=== PATIENT | female | born 1985 ===

== ENCOUNTER 2017-07-10 16:32 | Emergency (ER) | payer OTHER ==
[2017-07-10 16:32] VITALS: BMI 39.8
[2017-07-10 16:53] VITALS: BP 154/60; PULSE 95; RESP 16; TEMP 98.9; O2SAT 99
--- NOTE | 2017-07-10 17:22 | ED PDOC ---
HPI: Back Time Seen by Provider: 07/10/17 16:55 Chief Complaint (Nursing): Back Pain Chief Complaint (Provider): Back Pain History Per: Patient History/Exam Limitations: no limitations Onset/Duration Of Symptoms: Days (x2) Current Symptoms Are (Timing): Still Present Additional Complaint(s): Glory Church is a 31 year old female who presents to the ED complaining of lower back pain ongoing for 2 days. 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 No associated bowel or bladder dysfunction. Patient states that pain radiates down left leg. Patient has not taken any meds for the pain. PMD: Ravi Bernabe MD Past Medical History Reviewed: Historical Data, Nursing Documentation, Vital Signs Vital Signs: Last Vital Signs Temp 98.9 F 07/10/17 16:51 Pulse 95 H 07/10/17 16:51 Resp 16 07/10/17 16:51 BP 154/60 H 07/10/17 16:51 Pulse Ox 99 07/10/17 16:51 - Medical History PMH: Anxiety, Back Problems, Seizures - Surgical History Surgical History: (x 1) - Family History Family History: States: No Known Family Hx - Living Arrangements Living Arrangements: With Family - Social History Current smoker - smoking cessation education provided: Yes Alcohol: Occasional Drugs: Denies - Home Medications Home Medications: Ambulatory Orders Medication Instructions Recorded Fluticasone Propionate [Flonase] 4 spr IN DAILY #1 bottle 01/13/15 Guaifenesin/Pseudoephedrne HCl 1 ter PO Q12H PRN #10 ter 01/13/15 [Mucinex D 600 mg-60 mg] Albuterol HFA [Ventolin HFA 90 1 - 2 puff IH Q4H PRN #1 bottle 06/02/15 mcg/actuation (8 g)] Clindamycin [Cleocin] 300 mg PO QID #40 cap 07/14/15 oxyCODONE/Acetaminophen [Percocet 1 tab PO Q6H PRN #20 tab 07/14/15 5/325 mg Tab] Cyclobenzaprine HCl [Flexeril] 10 mg PO HS #10 tab 08/29/15 Oxycodone HCl/Acetaminophen 1 tab PO Q4 #10 tab 08/29/15 [Percocet 325 mg-5 mg] Azithromycin [Zithromax] 250 mg PO DAILY #6 tab 08/29/16 Benzonatate 200 mg PO TID PRN #20 capsule 08/29/16 predniSONE [Prednisone] 10 mg PO BID #10 tab 08/29/16 Fluconazole [Diflucan] 150 mg PO ONCE #1 tab 09/14/16 Metronidazole [Metrogel] 60 gm VAG HS #1 packet 09/14/16 Nitrofurantoin Macrocrystals 100 mg PO BID #14 cap 09/14/16 [Macrobid] Cyclobenzaprine [Cyclobenzaprine 10 mg PO TID PRN #20 tab 07/10/17 HCl] Naproxen [Naprosyn] 500 mg PO BID #20 tab 07/10/17 Prednisone 50 mg PO DAILY #5 tablet 07/10/17 - Allergies Allergies/Adverse Reactions: Allergies Allergy/AdvReac Type Severity Reaction Status Date / Time Penicillins Allergy RASH Verified 08/29/16 13:42 Review of Systems ROS Statement: Except As Marked, All Systems Reviewed And Found Negative Gastrointestinal: Negative for: Nausea, Vomiting, Abdominal Pain, Diarrhea, Constipation Genitourinary Female: Negative for: Dysuria, Frequency, Incontinence Musculoskeletal: Positive for: Back Pain (lower, pain radiates down left leg) Neurological: Positive for: Numbness (left leg when sitting for long periods) Physical Exam - Reviewed Nursing Documentation Reviewed: Yes Vital Signs Reviewed: Yes - Physical Exam Appears: Positive for: Well, Non-toxic, No Acute Distress Head Exam: Positive for: ATRAUMATIC, NORMAL INSPECTION, NORMOCEPHALIC Skin: Positive for: Normal Color. Negative for: Rash Eye Exam: Positive for: Normal appearance Back: Positive for: Muscle Spasm (lumbar region), Other (Able to heel/toe walk, straight leg raise positive on left at 30 degrees). Negative for: Normal Inspection (Tenderness across lower lumbar region) Neurologic/Psych: Positive for: Alert, Oriented - Laboratory Results Urine POC: Negative - ECG O2 Sat by Pulse Oximetry: 99 (RA) Pulse Ox Interpretation: Normal Medical Decision Making Medical Decision Making: Time: 17:16 Initial Impression: 31 year old female with back pain and sciatica Plan: --Flexeril 10 mg PO --Toradol 30 mg IM --Prednisone 60 mg PO --Reevaluation Patient feels better after meds given in ED. Prescriptions given for prednisone , Naprosyn and Flexeril. Patient was referred to ortho environmental field professional for follow up. Scribe Attestation: Documented by Jaspreet Mitchell, acting as a scribe for Kim Tapia PA-C Provider Scribe Attestation: All medical record entries made by the Scribe were at my direction and personally dictated by me. I have reviewed the chart and agree that the record accurately reflects my personal performance of the history, physical exam, medical decision making, and the department course for this patient. I have also personally directed, reviewed, and agree with the discharge instructions and disposition. Disposition - Clinical Impression Clinical Impression: Back strain, Sciatica - Patient ED Disposition Is Patient to be Admitted: No Counseled Patient/Family Regarding: Diagnosis, Need For Followup, Rx Given - Disposition Referrals: Kevin Lundberg III, MD [Staff Provider] - Disposition: Routine/Home Disposition Time: 18:26 Condition: STABLE Additional Instructions: Take prescription medications as directed as needed for pain. Rest as much as possible and avoid heavy lifting. Follow up with primary doctor or with orthopedics for any persistent symptoms. Prescriptions: Cyclobenzaprine [Cyclobenzaprine HCl] 10 mg PO TID PRN #20 tab PRN Reason: Muscle Spasm Naproxen [Naprosyn] 500 mg PO BID #20 tab Prednisone 50 mg PO DAILY #5 tablet Instructions: Back Pain (ED), Sciatica (ED) Forms: [place] ([place]ian), [facility] ED School/Work Excuse
== END 2017-07-10 18:11 | disposition home or self-care (01) ==
LOC: H.ER 16:32
DX: M54.30 Sciatica, unspecified side (principal); F41.9 Anxiety disorder, unspecified; Z88.0 Allergy status to penicillin
CPT/HCPCS: 81025; 96372; 99281; J1885

== ENCOUNTER 2017-08-06 19:18 | Emergency (ER) | payer OTHER ==
[2017-08-06 19:18] VITALS: BMI 39.8
[2017-08-06 19:44] VITALS: BP 158/103; PULSE 96; RESP 20; TEMP 98; O2SAT 97
--- NOTE | 2017-08-06 20:45 | ED PDOC ---
HPI: General Adult Time Seen by Provider: 08/06/17 20:02 Chief Complaint (Nursing): Flu-like Symptoms Chief Complaint (Provider): Flu-like Symptoms History Per: Patient Current Symptoms Are (Timing): Still Present Additional Complaint(s): Glory is a 32 year old female whho presents with body aches, nasal/sinus congestion and coughing for the past 2 days. Patient also has breast tenderness and cramping and is concerned about possible . She took a test at home and it was negative. Her last menstruation was July 24 and states she is regular. Patient has no vaginal bleeding at this time. PMD: Ravi Bernabe MD Past Medical History Reviewed: Historical Data, Nursing Documentation, Vital Signs Vital Signs: Last Vital Signs Temp 98 F 08/06/17 19:40 Pulse 96 H 08/06/17 19:40 Resp 20 08/06/17 19:40 BP 158/103 H 08/06/17 19:40 Pulse Ox 97 08/06/17 21:03 - Medical History PMH: Anxiety, Back Problems, Seizures - Surgical History Surgical History: (x 1) - Family History Family History: States: No Known Family Hx - Living Arrangements Living Arrangements: With Family - Social History Current smoker - smoking cessation education provided: Yes Alcohol: Social Drugs: Denies - Home Medications Home Medications: Ambulatory Orders Medication Instructions Recorded Fluticasone Propionate [Flonase] 4 spr IN DAILY #1 bottle 01/13/15 Guaifenesin/Pseudoephedrne HCl 1 ter PO Q12H PRN #10 ter 01/13/15 [Mucinex D 600 mg-60 mg] Albuterol HFA [Ventolin HFA 90 1 - 2 puff IH Q4H PRN #1 bottle 06/02/15 mcg/actuation (8 g)] Clindamycin [Cleocin] 300 mg PO QID #40 cap 07/14/15 oxyCODONE/Acetaminophen [Percocet 1 tab PO Q6H PRN #20 tab 07/14/15 5/325 mg Tab] Cyclobenzaprine HCl [Flexeril] 10 mg PO HS #10 tab 08/29/15 Oxycodone HCl/Acetaminophen 1 tab PO Q4 #10 tab 08/29/15 [Percocet 325 mg-5 mg] Azithromycin [Zithromax] 250 mg PO DAILY #6 tab 08/29/16 Benzonatate 200 mg PO TID PRN #20 capsule 08/29/16 predniSONE [Prednisone] 10 mg PO BID #10 tab 08/29/16 Fluconazole [Diflucan] 150 mg PO ONCE #1 tab 09/14/16 Metronidazole [Metrogel] 60 gm VAG HS #1 packet 09/14/16 Nitrofurantoin Macrocrystals 100 mg PO BID #14 cap 09/14/16 [Macrobid] Cyclobenzaprine [Cyclobenzaprine 10 mg PO TID PRN #20 tab 07/10/17 HCl] Naproxen [Naprosyn] 500 mg PO BID #20 tab 07/10/17 Prednisone 50 mg PO DAILY #5 tablet 07/10/17 Albuterol HFA [Ventolin HFA 90 1 puff IH ASDIR #1 unit 08/06/17 mcg/actuation (8 g)] Azithromycin [Zithromax] 250 mg PO DAILY #6 tab 08/06/17 Fluticasone Propionate [Flonase] 1 actuation NS DAILY #1 bottle 08/06/17 - Allergies Allergies/Adverse Reactions: Allergies Allergy/AdvReac Type Severity Reaction Status Date / Time Penicillins Allergy RASH Verified 08/06/17 19:44 Review of Systems ROS Statement: Except As Marked, All Systems Reviewed And Found Negative Constitutional: Positive for: Fever (subjective fever yesterday), Other (Body aches) Respiratory: Positive for: Cough, Sputum (yellow) Gastrointestinal: Positive for: Nausea. Negative for: Vomiting Genitourinary Female: Positive for: Other (Cramping). Negative for: Dysuria, Frequency, Incontinence, Hematuria, Vaginal Discharge, Vaginal Bleeding Physical Exam - Reviewed Nursing Documentation Reviewed: Yes Vital Signs Reviewed: Yes - Physical Exam Appears: Positive for: Non-toxic Head Exam: Positive for: ATRAUMATIC, NORMAL INSPECTION, NORMOCEPHALIC Eye Exam: Positive for: Normal appearance ENT: Positive for: Other (Moderate nasal and sinus congestion). Negative for: Pharyngeal Erythema Cardiovascular/Chest: Positive for: Regular Rate, Rhythm Respiratory: Positive for: Normal Breath Sounds. Negative for: Wheezing, Respiratory Distress Back: Positive for: Normal Inspection Extremity: Positive for: Normal ROM Neurologic/Psych: Positive for: Alert, Oriented (x 3) - Laboratory Results Urine POC: Negative - ECG O2 Sat by Pulse Oximetry: 97 (RA) Pulse Ox Interpretation: Normal - Other Rad CXR X-Ray: Interpreted by Me, Viewed By Me X-Ray Interpretation: no infiltrate Medical Decision Making Medical Decision Making: Time: 20:09 Plan: - Urine Test - Chest X-Ray test is negative, chest x-ray shows no infiltrate. Prescriptions provided for Flonase, Zithromax and Ventolin inhaler. Patient was instructed to follow up with primary doctor in 2-3 days. Scribe Attestation: Documented by [place], acting as a scribe for Kim Tapia PA-C Provider Scribe Attestation: All medical record entries made by the Scribe were at my direction and personally dictated by me. I have reviewed the chart and agree that the record accurately reflects my personal performance of the history, physical exam, medical decision making, and the department course for this patient. I have also personally directed, reviewed, and agree with the discharge instructions and disposition. Disposition - Clinical Impression Clinical Impression: Sinusitis - Patient ED Disposition Is Patient to be Admitted: No Counseled Patient/Family Regarding: Studies Performed, Diagnosis, Need For Followup, Rx Given - Disposition Referrals: Ravi Bernabe MD [Family Provider] - Disposition: Routine/Home Disposition Time: 22:08 Condition: STABLE Additional Instructions: Take prescription meds as directed. [id number] Tylenol or Advil for fever and body aches. Follow-up with primary doctor in 2-3 days. Prescriptions: Albuterol HFA [Ventolin HFA 90 mcg/actuation (8 g)] 1 puff IH ASDIR #1 unit Azithromycin [Zithromax] 250 mg PO DAILY #6 tab Fluticasone Propionate [Flonase] 1 actuation NS DAILY #1 bottle Instructions: Sinusitis (ED) Forms: [facility] ([place]), [facility] ED School/Work Excuse
--- NOTE | 2017-08-07 08:06 | RAD ---
HISTORY: cough COMPARISON: Chest radiographs 08/29/2016 TECHNIQUE: Chest PA and lateral FINDINGS: LUNGS: No active pulmonary disease. PLEURA: No significant pleural effusion identified. No pneumothorax apparent. CARDIOVASCULAR: Normal. OSSEOUS STRUCTURES: No significant abnormalities. VISUALIZED UPPER ABDOMEN: Normal. OTHER FINDINGS: None. IMPRESSION: No interval acute cardiopulmonary disease appreciated.
== END 2017-08-06 22:40 | disposition home or self-care (01) ==
LOC: H.ER 19:18
DX: J32.9 Chronic sinusitis, unspecified (principal); F41.9 Anxiety disorder, unspecified; Z88.0 Allergy status to penicillin; R05 Cough

== ENCOUNTER 2017-11-26 16:40 | Emergency (ER) | payer OTHER ==
[2017-11-26 16:40] VITALS: BMI 39.8
[2017-11-26 17:15] VITALS: RESP 20; O2SAT 100
--- NOTE | 2017-11-26 18:37 | ED PDOC ---
HPI: Female Pain Time Seen by Provider: 11/26/17 18:02 Chief Complaint (Nursing): Female Genitourinary Chief Complaint (Provider): Tightness of the right trapezius History Per: Patient History/Exam Limitations: no limitations Onset/Duration Of Symptoms: Days (2) Current Symptoms Are (Timing): Still Present Associated Symptoms: denies: Fever, Chills, Nausea, Vomiting, Loss Of Appetite Additional Complaint(s): PT states she woke up yesterday with right sided neck pain, stiff, worse with turning head to the right. Pt states she has also been having right sided pelvic pain on/off sharp. PT had a positive test 4 days ago. LMP 10/11 Past Medical History Reviewed: Historical Data, Nursing Documentation, Vital Signs Vital Signs: Last Vital Signs Temp 98.6 F 11/26/17 17:11 Pulse 81 11/26/17 17:11 Resp 20 11/26/17 17:11 BP 127/75 11/26/17 17:11 Pulse Ox 100 11/26/17 17:11 - Medical History PMH: Anxiety, Back Problems, Seizures - Surgical History Surgical History: (x 1) - Family History Family History: States: Unknown Family Hx - Living Arrangements Living Arrangements: With Family - Social History Current smoker - smoking cessation education provided: No - Home Medications Home Medications: Ambulatory Orders Medication Instructions Recorded Fluticasone Propionate [Flonase] 4 spr IN DAILY #1 bottle 01/13/15 Guaifenesin/Pseudoephedrne HCl 1 ter PO Q12H PRN #10 ter 01/13/15 [Mucinex D 600 mg-60 mg] Albuterol HFA [Ventolin HFA 90 1 - 2 puff IH Q4H PRN #1 bottle 06/02/15 mcg/actuation (8 g)] Clindamycin [Cleocin] 300 mg PO QID #40 cap 07/14/15 oxyCODONE/Acetaminophen [Percocet 1 tab PO Q6H PRN #20 tab 07/14/15 5/325 mg Tab] Cyclobenzaprine HCl [Flexeril] 10 mg PO HS #10 tab 08/29/15 Oxycodone HCl/Acetaminophen 1 tab PO Q4 #10 tab 08/29/15 [Percocet 325 mg-5 mg] Azithromycin [Zithromax] 250 mg PO DAILY #6 tab 08/29/16 Benzonatate 200 mg PO TID PRN #20 capsule 08/29/16 predniSONE [Prednisone] 10 mg PO BID #10 tab 08/29/16 Fluconazole [Diflucan] 150 mg PO ONCE #1 tab 09/14/16 Metronidazole [Metrogel] 60 gm VAG HS #1 packet 09/14/16 Nitrofurantoin Macrocrystals 100 mg PO BID #14 cap 09/14/16 [Macrobid] Cyclobenzaprine [Cyclobenzaprine 10 mg PO TID PRN #20 tab 07/10/17 HCl] Naproxen [Naprosyn] 500 mg PO BID #20 tab 07/10/17 Prednisone 50 mg PO DAILY #5 tablet 07/10/17 Albuterol HFA [Ventolin HFA 90 1 puff IH ASDIR #1 unit 08/06/17 mcg/actuation (8 g)] Azithromycin [Zithromax] 250 mg PO DAILY #6 tab 08/06/17 Fluticasone Propionate [Flonase] 1 actuation NS DAILY #1 bottle 08/06/17 - Allergies Allergies/Adverse Reactions: Allergies Allergy/AdvReac Type Severity Reaction Status Date / Time Penicillins Allergy RASH Verified 11/26/17 17:09 Review of Systems ROS Statement: Except As Marked, All Systems Reviewed And Found Negative Constitutional: Negative for: Fever, Chills Gastrointestinal: Positive for: Abdominal Pain. Negative for: Nausea, Vomiting Musculoskeletal: Positive for: Neck Pain Physical Exam - Reviewed Nursing Documentation Reviewed: Yes Vital Signs Reviewed: Yes - Physical Exam Appears: Positive for: Well, Non-toxic, No Acute Distress Head Exam: Positive for: ATRAUMATIC, NORMAL INSPECTION, NORMOCEPHALIC Skin: Positive for: Normal Color, Warm, DRY Eye Exam: Positive for: Normal appearance ENT: Positive for: Normal ENT Inspection Neck: Positive for: Normal, Painless ROM, Supple ((+) tenderness of the right trapezius and upper right back ) Cardiovascular/Chest: Positive for: Regular Rate, Rhythm Respiratory: Positive for: Normal Breath Sounds. Negative for: Decreased Breath Sounds, Accessory Muscle Use, Respiratory Distress Gastrointestinal/Abdominal: Positive for: Normal Exam, Soft. Negative for: Tenderness Back: Positive for: Normal Inspection Extremity: Positive for: Normal ROM Neurologic/Psych: Positive for: Alert, Oriented - Laboratory Results Result Diagrams: 11/26/17 19:46 11/26/17 18:38 Urine POC: Positive - ECG O2 Sat by Pulse Oximetry: 100 Pulse Ox Interpretation: Normal Disposition - Clinical Impression Clinical Impression: Abdominal pain during , Neck muscle strain - Disposition Disposition: Routine/Home Disposition Time: 20:30 Condition: STABLE Instructions: Muscle Strain, Round Ligament Pain Forms: [facility] ([place]), [facility] ED School/Work Excuse
[2017-11-26 18:53] LABS: CALCIUM 9.6 mg/dL (8.4-10.2); GFR AFRICAN-AMERICAN > 60; GFR NON-AFRICAN AMERICAN > 60
[2017-11-26 18:55] LABS: ALT/SGPT 34 U/L (9-52); AST/SGOT 29 U/L (14-36); BLOOD UREA NITROGEN 12 mg/dl (7-17)
[2017-11-26] MEDS ORDERED: Lactated Ringer's 1,000 ML IV SCH (19:30)
[2017-11-26 19:57] LABS: HEMOGLOBIN 13.1 g/dL (12.0-16.0); MEAN CORPUSCULAR HEMOGLOBIN 30.1 pg (27.0-31.0); MEAN CORPUSCULAR HGB CONC 33.1 g/dL (33.0-37.0); RBC 4.36 Mil/uL (3.80-5.20); RED CELL DISTRIBUTION WIDTH 12.9 % (11.5-14.5); WHITE BLOOD COUNT 13.3 K/uL (4.8-10.8)
--- NOTE | 2017-11-26 20:25 | ED PDOC ---
- Laboratory Results Result Diagrams: 11/26/17 19:46 11/26/17 18:38 Urine POC: Positive - ECG O2 Sat by Pulse Oximetry: 100 - Progress ED Course And Treament: Case endorsed to abstract writer from Mario GOODWIN pending u/s EXAM: US First Trimester, Transabdominal US , Transvaginal CLINICAL HISTORY: 32 years old, female; Pain; complicated by abdominal or pelvic pain; Lower; First trimester; Gestational age or lmp: 10/17/2017; ; Additional info: Right sided pain TECHNIQUE: Real-time transabdominal and transvaginal obstetrical ultrasound of the maternal pelvis and a first trimester with image documentation. Transvaginal imaging was used for better evaluation of the fetus and adnexa. COMPARISON: No relevant prior studies available. FINDINGS: Gestation: Probable gestational sac. No yolk sac. No pole. Mean sac diameter of 0.5 cm, out of range. Uterus/cervix: No subchorionic hemorrhage. No cervical dilatation or effacement. Probable nabothian cysts. Ovaries: Normal ovaries. No adnexal masses. Free fluid: No significant free fluid. IMPRESSION: 1. Probable intrauterine , of uncertain viability. Recommend followup. 2. Incidental/non-acute findings are described above. Patient educated on findings, discharged with instructions to follow up with OB/ Thermograph Operator in 48 hours for re-eval. Advised Tylenol PRN pain. Return precautions given. Disposition - Clinical Impression Clinical Impression: Abdominal pain during , Neck muscle strain - POA Present On Arrival: None - Disposition Disposition: Routine/Home Disposition Time: 20:29 Condition: STABLE Instructions: Round Ligament Pain, Muscle Strain Forms: [facility] ([place])
[2017-11-26 20:37] VITALS: BP 135/82; PULSE 83; TEMP 98.4
--- NOTE | 2017-11-27 09:35 | US ---
PROCEDURE: OB Pelvic Ultrasound HISTORY: right sided pain. LMP 10/17/2017 COMPARISON: None available. FINDINGS: UTERUS: A small probable gestational sac is present 0.47 cm -out of range. No yolk sac or pole appreciated. Sac position in shape grossly normal. Uterus measures 7.7 x 5.8 x 4.6 cm. No mass. Anteverted uterus no masses seen. CERVIX: 4.9 cm Long and closed. Small incidental nabothian cysts noted RIGHT OVARY: Measures 3.4 x 6 x 2.8 x 2.3 cm cm. No mass. Normal flow. LEFT OVARY: Measures 3.4 x 2.8 x 2.3 cm cm. No mass. Normal flow. FREE FLUID: None. OTHER FINDINGS: None. IMPRESSION: Probable intra you early gestation viability indeterminate at this time. No yolk sac or pole identified. The gestational sac size is out of range-a less than 6 week gestation is inferred. Based on patient's LMP gestational age of 5 weeks 5 days there is offered. Consider follow-up imaging in 10 to 14 days to reassess. Concordant results (preliminary interpretation) provided by [facility].
== END 2017-11-26 20:37 | disposition home or self-care (01) ==
LOC: H.ER 16:40
DX: O26.899 Other specified pregnancy related conditions, unspecified trimester (principal); S16.1XXA Strain of muscle, fascia and tendon at neck level, initial encounter; Y92.89 Other specified places as the place of occurrence of the external cause; Z3A.01 Less than 8 weeks gestation of pregnancy; Z88.0 Allergy status to penicillin; F41.9 Anxiety disorder, unspecified

== ENCOUNTER 2017-11-28 18:25 | Emergency (ER) | payer OTHER ==
[2017-11-28 18:26] VITALS: BMI 39.8
[2017-11-28 18:39] VITALS: BP 126/82; PULSE 100; RESP 16; TEMP 98.5; O2SAT 100
--- NOTE | 2017-11-28 20:16 | ED PDOC ---
HPI: Female Pain Time Seen by Provider: 11/28/17 20:12 Chief Complaint (Nursing): Female Genitourinary Chief Complaint (Provider): repeat beta History Per: Patient Additional Complaint(s): 32-year-old female currently 5 weeks presents to emergency department for repeat beta Quant. Patient was seen 2 days ago and was told to return today for repeat blood work. Patient denies any pain or bleeding at this time. She is (child at 26 hrs of life). Past Medical History Reviewed: Historical Data, Nursing Documentation, Vital Signs Vital Signs: Last Vital Signs Temp 98.5 F 11/28/17 18:35 Pulse 100 H 11/28/17 18:35 Resp 16 11/28/17 18:35 BP 126/82 11/28/17 18:35 Pulse Ox 100 11/28/17 18:35 - Medical History PMH: Anxiety, Back Problems, Seizures - Surgical History Surgical History: (x 1) - Family History Family History: States: No Known Family Hx - Living Arrangements Living Arrangements: With Family - Social History Current smoker - smoking cessation education provided: Yes Alcohol: None Drugs: Denies - Home Medications Home Medications: Ambulatory Orders Medication Instructions Recorded Fluticasone Propionate [Flonase] 4 spr IN DAILY #1 bottle 01/13/15 Guaifenesin/Pseudoephedrne HCl 1 ter PO Q12H PRN #10 ter 01/13/15 [Mucinex D 600 mg-60 mg] Albuterol HFA [Ventolin HFA 90 1 - 2 puff IH Q4H PRN #1 bottle 06/02/15 mcg/actuation (8 g)] Clindamycin [Cleocin] 300 mg PO QID #40 cap 07/14/15 oxyCODONE/Acetaminophen [Percocet 1 tab PO Q6H PRN #20 tab 07/14/15 5/325 mg Tab] Cyclobenzaprine HCl [Flexeril] 10 mg PO HS #10 tab 08/29/15 Oxycodone HCl/Acetaminophen 1 tab PO Q4 #10 tab 08/29/15 [Percocet 325 mg-5 mg] Azithromycin [Zithromax] 250 mg PO DAILY #6 tab 08/29/16 Benzonatate 200 mg PO TID PRN #20 capsule 08/29/16 predniSONE [Prednisone] 10 mg PO BID #10 tab 08/29/16 Fluconazole [Diflucan] 150 mg PO ONCE #1 tab 09/14/16 Metronidazole [Metrogel] 60 gm VAG HS #1 packet 09/14/16 Nitrofurantoin Macrocrystals 100 mg PO BID #14 cap 09/14/16 [Macrobid] Cyclobenzaprine [Cyclobenzaprine 10 mg PO TID PRN #20 tab 07/10/17 HCl] Naproxen [Naprosyn] 500 mg PO BID #20 tab 07/10/17 Prednisone 50 mg PO DAILY #5 tablet 07/10/17 Albuterol HFA [Ventolin HFA 90 1 puff IH ASDIR #1 unit 08/06/17 mcg/actuation (8 g)] Azithromycin [Zithromax] 250 mg PO DAILY #6 tab 08/06/17 Fluticasone Propionate [Flonase] 1 actuation NS DAILY #1 bottle 08/06/17 - Allergies Allergies/Adverse Reactions: Allergies Allergy/AdvReac Type Severity Reaction Status Date / Time Penicillins Allergy RASH Verified 11/26/17 17:09 Review of Systems ROS Statement: Except As Marked, All Systems Reviewed And Found Negative Gastrointestinal: Negative for: Abdominal Pain Genitourinary Female: Negative for: Vaginal Discharge, Vaginal Bleeding, Pelvic Pain Physical Exam - Reviewed Nursing Documentation Reviewed: Yes Vital Signs Reviewed: Yes - Physical Exam Appears: Positive for: Well, Non-toxic, No Acute Distress Skin: Negative for: Rash Eye Exam: Positive for: Normal appearance Cardiovascular/Chest: Positive for: Regular Rate, Rhythm Respiratory: Positive for: Normal Breath Sounds Gastrointestinal/Abdominal: Positive for: Soft, Other (Obese nontender abdomen) . Negative for: Tenderness, Distended, Guarding, Rebound Extremity: Positive for: Normal ROM Neurologic/Psych: Positive for: Alert, Oriented - ECG O2 Sat by Pulse Oximetry: 100 Pulse Ox Interpretation: Normal Medical Decision Making Medical Decision Makin-year-old female presents for repeat beta Quant. Patient was seen on Saturday, beta Quant was 1258.60 Beta from today: 1968 Patient was referred to women's clinic for follow-up. Disposition - Clinical Impression Clinical Impression: - Patient ED Disposition Is Patient to be Admitted: No Counseled Patient/Family Regarding: Need For Followup - Disposition Referrals: [facility] [Outside] Disposition: Routine/Home Disposition Time: 21:30 Condition: STABLE Additional Instructions: Follow-up with woman's clinic or your OB in 1-2 weeks. Instructions: - The First Month Forms: [employer] ([place]ian)
== END 2017-11-28 22:40 | disposition home or self-care (01) ==
LOC: H.ER 18:25
DX: O02.81 Inappropriate change in quantitative human chorionic gonadotropin (hCG) in early pregnancy (principal)

== ENCOUNTER 2017-12-26 20:36 | Emergency (ER) | payer MEDICAID, OTHER ==
[2017-12-26 20:36] VITALS: BMI 39.8
[2017-12-26 20:57] VITALS: BP 126/76; PULSE 92; RESP 17; TEMP 99.2; O2SAT 98
--- NOTE | 2017-12-26 21:25 | ED PDOC ---
HPI: Abdomen Time Seen by Provider: 12/26/17 21:05 Chief Complaint (Nursing): Abdominal Pain History Per: Patient History/Exam Limitations: no limitations Onset/Duration Of Symptoms: Hrs Outside of [place] travel?: No Location Of Pain/Discomfort: Suprapubic Quality Of Discomfort: Pressure Additional Complaint(s): @ 10 weeks, anxiety, presenting with vaginal spotting, states she noticed pink discharge on her pantyliners, changed into a clean pair of underwear and noticed another pink spot, reached into her vagina and noticed pink discharge. Also has been having suprapubic/lower abdominal pressure but states it is not painful. States some nausea today, but no vomiting. Normal BM's, no urinary symptoms. No fevers, chills. Patient nervous about because she had a premature delivery and baby passed <24 hours after . Past Medical History Reviewed: Historical Data, Nursing Documentation, Vital Signs Vital Signs: Last Vital Signs Temp 99.2 F 12/26/17 20:53 Pulse 92 H 12/26/17 20:53 Resp 17 12/26/17 20:53 BP 126/76 12/26/17 20:53 Pulse Ox 98 12/26/17 21:29 - Medical History PMH: Anxiety, Back Problems, Seizures - Surgical History Surgical History: (x 1) - Family History Family History: States: Unknown Family Hx - Home Medications Home Medications: Ambulatory Orders Medication Instructions Recorded Fluticasone Propionate [Flonase] 4 spr IN DAILY #1 bottle 01/13/15 Guaifenesin/Pseudoephedrne HCl 1 ter PO Q12H PRN #10 ter 01/13/15 [Mucinex D 600 mg-60 mg] Albuterol HFA [Ventolin HFA 90 1 - 2 puff IH Q4H PRN #1 bottle 06/02/15 mcg/actuation (8 g)] Clindamycin [Cleocin] 300 mg PO QID #40 cap 07/14/15 oxyCODONE/Acetaminophen [Percocet 1 tab PO Q6H PRN #20 tab 07/14/15 5/325 mg Tab] Cyclobenzaprine HCl [Flexeril] 10 mg PO HS #10 tab 08/29/15 Oxycodone HCl/Acetaminophen 1 tab PO Q4 #10 tab 08/29/15 [Percocet 325 mg-5 mg] Azithromycin [Zithromax] 250 mg PO DAILY #6 tab 08/29/16 Benzonatate 200 mg PO TID PRN #20 capsule 08/29/16 predniSONE [Prednisone] 10 mg PO BID #10 tab 08/29/16 Fluconazole [Diflucan] 150 mg PO ONCE #1 tab 09/14/16 Metronidazole [Metrogel] 60 gm VAG HS #1 packet 09/14/16 Nitrofurantoin Macrocrystals 100 mg PO BID #14 cap 09/14/16 [Macrobid] Cyclobenzaprine [Cyclobenzaprine 10 mg PO TID PRN #20 tab 07/10/17 HCl] Naproxen [Naprosyn] 500 mg PO BID #20 tab 07/10/17 Prednisone 50 mg PO DAILY #5 tablet 07/10/17 Albuterol HFA [Ventolin HFA 90 1 puff IH ASDIR #1 unit 08/06/17 mcg/actuation (8 g)] Azithromycin [Zithromax] 250 mg PO DAILY #6 tab 08/06/17 Fluticasone Propionate [Flonase] 1 actuation NS DAILY #1 bottle 08/06/17 - Allergies Allergies/Adverse Reactions: Allergies Allergy/AdvReac Type Severity Reaction Status Date / Time Penicillins Allergy RASH Verified 11/26/17 17:09 Review of Systems ROS Statement: Except As Marked, All Systems Reviewed And Found Negative Gastrointestinal: Positive for: Abdominal Pain Genitourinary Female: Positive for: Vaginal Discharge, Vaginal Bleeding Physical Exam - Reviewed Nursing Documentation Reviewed: Yes Vital Signs Reviewed: Yes - Physical Exam Appears: Positive for: Well, Non-toxic, No Acute Distress Head Exam: Positive for: ATRAUMATIC, NORMAL INSPECTION, NORMOCEPHALIC Skin: Positive for: Normal Color, Warm, DRY Eye Exam: Positive for: EOMI, Normal appearance, PERRL ENT: Positive for: Normal ENT Inspection Neck: Positive for: Normal, Painless ROM Cardiovascular/Chest: Positive for: Regular Rate, Rhythm Respiratory: Positive for: CNT, Normal Breath Sounds Gastrointestinal/Abdominal: Positive for: Normal Exam, Soft Pelvic Exam: Positive for: External Exam Normal, Speculum Exam Normal, Bimanual Exam Normal, Other (Derrick Worker was CORINA Ramirez). Negative for: No Cerv. Motion Tender, No Masses, Active Bleeding, Blood, Cervicitis, Discharge, Lesions, Mass , Tender W/Cervical Motion, Tender Adnexa, Tender Uterus Back: Positive for: Normal Inspection Extremity: Positive for: Normal ROM Neurologic/Psych: Positive for: Alert, Oriented - ECG O2 Sat by Pulse Oximetry: 98 Pulse Ox Interpretation: Normal Medical Decision Making Medical Decision MakinP A/P: , anxiety, patient having vaginal spotting/bleeding -exam completley normal, cervix closed -will check beta-hcg, U/S -will re-eval post workup -ddx: threatened Ab, physiologic discharge of , early spontaneous Ab 1045PM EXAM: US , Transvaginal EXAM DATE/TIME: 12/26/2017 9:05 PM CLINICAL HISTORY: 32 years old, female; Signs and symptoms; Lmp or gestational age (in weeks): ; Antepartum complications; Other: Spotting; ; Additional info: Approx 10 wks preg, spotting, vb TECHNIQUE: Real-time transvaginal obstetrical ultrasound of the maternal pelvis and a first trimester with image documentation. Transvaginal imaging was used for better evaluation of the fetus and adnexa. COMPARISON: US - OB PREG 1ST TRI OB TRANSVAG 2017-11-26 18:48 FINDINGS: Gestation: There is a single living intrauterine gestation. [place]-rump length measures approximately 2.5 cm. There is a heart rate of 165 beats per minute. A yolk sac is present, internal diameter measures approximately 4 mm.Gestational sac has mean diameter 36.9 mm . Uterus: Cervix measures approximately 3.5 cm in length. There is a small nabothian cyst. Ovaries: Right ovary measures approximately 2.1 x 1.7 x 1.9 cm. Left ovary measures approximately 2.5 x 1.9 x 2.2 cm. There is expected blood flow on Doppler imaging Free fluid: No free fluid. IMPRESSION: 9 week 0 day single living intrauterine gestation, estimated date of delivery 07/31/18 Thank you for allowing us to participate in the care of your patient. Dictated and Authenticated by: Sera Bay MD 12/26/2017 10:39 PM Eastern Time ([place] & [place]) Lab misplaced beta-hcg specimen. However, given normal U/S, will discharge with threatened Ab precautions (pelvic rest, etc.). Will d/c home with return precautions. Will refer to OB. Disposition - Clinical Impression Clinical Impression: Threatened - Patient ED Disposition Is Patient to be Admitted: No - Disposition Referrals: Ravi Bernabe MD [Family Provider[facility]] Disposition: Routine/Home Disposition Time: 23:01 Condition: IMPROVED Instructions: Threatened Miscarriage (DC) Forms: [employer] (Kittitian)
[2017-12-26 22:04] LABS: SQUAMOUS EPITHIAL 6 /hpf (0-5); URINE BACTERIA RARE (<OCC); URINE BILIRUBIN NEGATIVE (NEGATIVE); URINE BLOOD SMALL (NEGATIVE); URINE CLARITY CLOUDY (Clear); URINE COLOR YELLOW (YELLOW); URINE GLUCOSE (UA) NEG (Normal); URINE LEUKOCYTE ESTERASE SMALL Leu/uL (Negative); URINE PROTEIN NEGATIVE (NEGATIVE)
--- NOTE | 2017-12-26 22:39 | US ---
EXAM: US , Transvaginal EXAM DATE/TIME: 12/26/2017 9:05 PM CLINICAL HISTORY: 32 years old, female; Signs and symptoms; Lmp or gestational age (in weeks): 10/17/17; Antepartum complications; Other: Spotting; ; Additional info: Approx 10 wks preg, spotting, vb TECHNIQUE: Real-time transvaginal obstetrical ultrasound of the maternal pelvis and a first trimester with image documentation. Transvaginal imaging was used for better evaluation of the fetus and adnexa. COMPARISON: US - OB PREG 1ST TRI OB TRANSVAG 2017-11-26 18:48 FINDINGS: Gestation: There is a single living intrauterine gestation. [place]-rump length measures approximately 2.5 cm. There is a heart rate of 165 beats per minute. A yolk sac is present, internal diameter measures approximately 4 mm.Gestational sac has mean diameter 36.9 mm . Uterus: Cervix measures approximately 3.5 cm in length. There is a small nabothian cyst. Ovaries: Right ovary measures approximately 2.1 x 1.7 x 1.9 cm. Left ovary measures approximately 2.5 x 1.9 x 2.2 cm. There is expected blood flow on Doppler imaging Free fluid: No free fluid. IMPRESSION: 9 week 0 day single living intrauterine gestation, estimated date of delivery 07/31/18
== END 2017-12-26 23:22 | disposition home or self-care (01) ==
LOC: H.ER 20:36
DX: O20.0 Threatened abortion (principal); Z3A.10 10 weeks gestation of pregnancy; F41.9 Anxiety disorder, unspecified; Z88.0 Allergy status to penicillin

== ENCOUNTER 2018-10-29 08:25 | Emergency (ER) | payer OTHER ==
--- NOTE | 2018-10-29 09:31 | ED PDOC ---
HPI: Back Time Seen by Provider: 10/29/18 09:04 Chief Complaint (Nursing): Back Pain Chief Complaint (Provider): Back Pain History Per: Patient History/Exam Limitations: no limitations Onset/Duration Of Symptoms: Hrs Current Symptoms Are (Timing): Still Present Additional Complaint(s): 33 year old female with a past medical history of back pain, gall stones, and anxiety who is presenting to the ED for evaluation of constant bilateral upper back pain radiating to the chest associated with pressure onset earlier this morning around 3:30 am. Patient states that she was feeding her 3 month old baby when she felt the pain and it took her breath away. She admits that she started getting anxious and reports taking Tylenol for pain. Patient states that she also was feeling nauseous and had 2 episodes of vomiting but denies any cough, fevers, diarrhea, and history of blood clots or heart disease. She also complains of chronic body pain including shoulder pain, leg pain and lower back pain. Patient admits that she has had 2 similar episodes in the past after which she had blood work done which was normal but admits that she was recently diagnosed with fibromyalgia. Patient offers no other medical complaints at this time. Of note, patient is not breast feeding. PMD: Dr. Jesenia Candelaria Past Medical History Reviewed: Historical Data, Nursing Documentation, Vital Signs Vital Signs: Last Vital Signs Temp 97 F L 10/29/18 08:38 Pulse 71 10/29/18 08:38 Resp 18 10/29/18 08:38 BP 157/84 H 10/29/18 08:38 Pulse Ox 100 10/29/18 08:38 - Medical History PMH: Anxiety, Back Problems, Fibromyalgia, Seizures Denies: Chronic Kidney Disease - Surgical History Surgical History: (x 1) - Family History Family History: States: Unknown Family Hx - Social History Current smoker - smoking cessation education provided: No Ex-Smoker (has not smoked in the last 12 months): Yes Alcohol: Social Drugs: Denies - Immunization History Hx Tetanus Toxoid Vaccination: No Hx Influenza Vaccination: No Hx Pneumococcal Vaccination: No - Home Medications Home Medications: Ambulatory Orders Medication Instructions Recorded Cyclobenzaprine [Cyclobenzaprine 10 mg PO TID #15 tab 10/29/18 HCl] Naproxen 500 mg PO BID #30 tab 10/29/18 - Allergies Allergies/Adverse Reactions: Allergies Allergy/AdvReac Type Severity Reaction Status Date / Time Penicillins Allergy RASH Verified 11/26/17 17:09 Review of Systems ROS Statement: Except As Marked, All Systems Reviewed And Found Negative Constitutional: Positive for: Other (body aches ). Negative for: Fever Cardiovascular: Positive for: Chest Pain Respiratory: Negative for: Cough Gastrointestinal: Positive for: Nausea, Vomiting. Negative for: Diarrhea Musculoskeletal: Positive for: Shoulder Pain, Back Pain, Leg Pain Psych: Positive for: Anxiety Physical Exam - Reviewed Nursing Documentation Reviewed: Yes Vital Signs Reviewed: Yes - Physical Exam Appears: Positive for: Non-toxic, No Acute Distress (appears obese ) Head Exam: Positive for: ATRAUMATIC, NORMAL INSPECTION, NORMOCEPHALIC Skin: Positive for: Normal Color, Warm, DRY Eye Exam: Positive for: EOMI, Normal appearance, PERRL Neck: Positive for: Normal, Painless ROM Cardiovascular/Chest: Positive for: Regular Rate, Rhythm. Negative for: Murmur Respiratory: Positive for: Normal Breath Sounds. Negative for: Respiratory Distress Gastrointestinal/Abdominal: Positive for: Normal Exam, Soft. Negative for: Tenderness Back: Positive for: Normal Inspection. Negative for: L CVA Tenderness, R CVA Tenderness, Vertebral Tenderness Extremity: Positive for: Normal ROM. Negative for: Deformity, Swelling Neurologic/Psych: Positive for: Alert, Oriented. Negative for: Motor/Sensory Deficits - Laboratory Results Result Diagrams: 10/29/18 09:20 10/29/18 09:20 - ECG ECG: Positive for: Interpreted By Me, Viewed By Me ECG Rhythm: Positive for: Normal QRS, Normal ST Segment, Sinus Rhythm, Sinus Bradycardia. Negative for: ST/T Changes Rate: 58 O2 Sat by Pulse Oximetry: 100 (RA) Pulse Ox Interpretation: Normal - Radiology X-Ray: Viewed By Me, Read By Radiologist X-Ray Interpretation: No Acute Disease - Progress Re-evaluation Time: 14:16 Condition: Re-examined, Improved Medical Decision Making Medical Decision Making: Time: 9:15 Impression: Back pain and chest pressure Differentials: ACS, pulmonary embolism, gall bladder disease, pancreatitis, neuropathy, and fibromyalgia Plan: --EKG --CMP --Lipase --Troponin --ED Urine --ED Urine Dipstick --CBC --D Dimer --Erythrocyte Sedimantation Rate --Flexeril 10 mg PO --Toradol 30 mg IVP Chest x-ray: FINDINGS: LUNGS: No active pulmonary disease. PLEURA: No significant pleural effusion identified. No pneumothorax apparent. CARDIOVASCULAR: No aortic atherosclerotic calcification present. Normal cardiac size. No pulmonary vascular congestion. OSSEOUS STRUCTURES: Thoracic spondylosis-similar VISUALIZED UPPER ABDOMEN: Normal. OTHER FINDINGS: None. IMPRESSION: No interval acute cardiopulmonary pathology noted. 11:34 Labs show an elevated D Dimer of 342. CT Angio will be ordered. CT Chest: FINDINGS: PULMONARY ARTERIES: Unremarkable. No pulmonary embolism. Normal appearing right ventricle to left ventricle ratio. AORTA: No acute findings. No thoracic aortic aneurysm. No aortic atherosclerotic calcification or mural plaque present. LUNGS: 5.5 mm noncalcified nodule left lower lobe image 48 series 5 which follow-up chest CT is advised in 6 months to 1 year (depending on patient's risk fracture for developing lung cancer) to demonstrate stability PLEURAL SPACES: Unremarkable. No effusion or pneumothorax. HEART: Unremarkable. No cardiomegaly. No significant pericardial effusion. LYMPH NODES: No lymphadenopathy. BONES, CHEST WALL: Unremarkable. No fracture or destructive lesion OTHER FINDINGS: Unremarkable. IMPRESSION: No CT evidence of pulmonary embolus. Solitary nodule 5.5 mm left lower lobe for which follow-up chest CT is advised in 6-12 months (depending on patient's risk fracture for developing lung cancer). No infiltrate, pleural or pericardial effusion, pulmonary vascular congestion or significant lymphadenopathy. Normal cardiac size. Scribe Attestation: Documented by Cyndie Gan, acting as a scribe for Paul Walsh MD. Provider Scribe Attestation: All medical record entries made by the Scribe were at my direction and personally dictated by me. I have reviewed the chart and agree that the record accurately reflects my personal performance of the history, physical exam, medical decision making, and the department course for this patient. I have also personally directed, reviewed, and agree with the discharge instructions and disposition. Disposition - Clinical Impression Clinical Impression: Back pain, Chest pain, Pulmonary nodule - Patient ED Disposition Is Patient to be Admitted: No Doctor Will See Patient In The: Office Counseled Patient/Family Regarding: Studies Performed, Diagnosis, Need For Followup - Disposition Referrals: Jesenia Candelaria APN [Family Provider] - Disposition: Routine/Home Disposition Time: 14:17 Condition: GOOD Additional Instructions: SHIVAM MUNOZ, thank you for letting us take care of you today. Your provider was Paul Walsh MD and you were treated for BACK PAIN. The emergency medical care you received today was directed at your acute symptoms. If you were prescribed any medication, please fill it and take as directed. It may take several days for your symptoms to resolve. Return to the Emergency Department if your symptoms worsen, do not improve, or if you have any other problems. Please contact your doctor or call one of the physicians/clinics you have been referred to that are listed on the Patient Visit Information form that is included in your discharge packet. Bring any paperwork you were given at discharge with you along with any medications you are taking to your follow up visit. Our treatment cannot replace ongoing medical care by a primary care provider outside of the emergency department. Thank you for allowing the [email or web address] team to be part of your care today. If you had an X-Ray or CT scan: A Radiologist will review the ED reading if any change in treatment is needed we will contact you. If you had a blood, urine, or wound culture: It will take several days for the results, if any change in treatment is needed we will contact you. If you had an STI test: It will take 48 hours for the results. Please call after 1 week if you have not heard back. Prescriptions: Cyclobenzaprine [Cyclobenzaprine HCl] 10 mg PO TID #15 tab Naproxen 500 mg PO BID #30 tab Instructions: Chest Pain, Upper Back Pain (DC), Pulmonary Nodule Forms: [employer] (Greenlandic)
[2018-10-29 10:25] LABS: BASO % 0.3 % (0.0-2.0); EOS # 0.2 K/uL (0.0-0.7); EOS % 2.7 % (0.0-4.0); HEMOGLOBIN 11.2 g/dL (12.0-16.0); LYMPH # 1.8 K/uL (1.0-4.3); LYMPH % 21.1 % (20.0-40.0); MEAN CELL VOLUME 83.2 fl (81.0-99.0); MEAN CORPUSCULAR HEMOGLOBIN 27.3 pg (27.0-31.0); MEAN CORPUSCULAR HGB CONC 32.8 g/dL (33.0-37.0); MEAN PLATELET VOLUME 7.9 fl (7.2-11.7); MONO # 0.5 K/uL (0.0-0.8); MONO % 6.1 % (0.0-10.0); NEUT # 6.1 K/uL (1.8-7.0); NEUT % 69.8 % (50.0-75.0); NRBC % 0.1 % (0.0-0.0); RBC 4.09 Mil/uL (3.80-5.20); RED CELL DISTRIBUTION WIDTH 14.4 % (11.5-14.5); WHITE BLOOD COUNT 8.7 K/uL (4.8-10.8)
[2018-10-29 10:38] VITALS: RESP 18; TEMP 97
[2018-10-29 10:48] LABS: ALB/GLOB RATIO 1.1 (1.0-2.1); ALT/SGPT 21 U/L (9-52); AST/SGOT 18 U/L (14-36); BLOOD UREA NITROGEN 16 mg/dl (7-17); CALCIUM 8.9 mg/dL (8.4-10.2); GFR NON-AFRICAN AMERICAN > 60; LIPASE 32 U/L (23-300)
--- NOTE | 2018-10-29 11:12 | RAD ---
Date of service: 10/29/2018 HISTORY: chest pain COMPARISON: 08/06/2017 TECHNIQUE: Chest PA and lateral FINDINGS: LUNGS: No active pulmonary disease. PLEURA: No significant pleural effusion identified. No pneumothorax apparent. CARDIOVASCULAR: No aortic atherosclerotic calcification present. Normal cardiac size. No pulmonary vascular congestion. OSSEOUS STRUCTURES: Thoracic spondylosis-similar VISUALIZED UPPER ABDOMEN: Normal. OTHER FINDINGS: None. IMPRESSION: No interval acute cardiopulmonary pathology noted.
[2018-10-29] MEDS ORDERED: Sodium Chloride 0.9% 50 ML IV ONE (12:22)
[2018-10-29] MEDS ORDERED: Iodixanol 320 MG/ML 100 ML BOTTLE IV ONE (12:22)
--- NOTE | 2018-10-29 13:29 | CARD ---
APPROVED REPORT Date of service: 10/29/2018 EKG Measurement Heart [id number] <Conclusion> Sinus bradycardia Minimal voltage criteria for LVH, may be normal variant Borderline ECG
--- NOTE | 2018-10-29 13:53 | CT ---
Date of service: 10/29/2018 PROCEDURE: CT Chest with contrast (Pulmonary Angiogram) HISTORY: chest pain COMPARISON: None available. TECHNIQUE: Axial computed tomography images were obtained of the chest in the pulmonary arterial phase of enhancement. Coronal and sagittal reformatted images were created and reviewed. Intravenous contrast dose: Visipaque 320, 100 cc Radiation dose: Total exam DLP = 367.09 mGy-cm. This CT exam was performed using one or more of the following dose reduction techniques: Automated exposure control, adjustment of the mA and/or kV according to patient size, and/or use of iterative reconstruction technique. FINDINGS: PULMONARY ARTERIES: Unremarkable. No pulmonary embolism. Normal appearing right ventricle to left ventricle ratio. AORTA: No acute findings. No thoracic aortic aneurysm. No aortic atherosclerotic calcification or mural plaque present. LUNGS: 5.5 mm noncalcified nodule left lower lobe image 48 series 5 which follow-up chest CT is advised in 6 months to 1 year (depending on patient's risk fracture for developing lung cancer) to demonstrate stability PLEURAL SPACES: Unremarkable. No effusion or pneumothorax. HEART: Unremarkable. No cardiomegaly. No significant pericardial effusion. LYMPH NODES: No lymphadenopathy. BONES, CHEST WALL: Unremarkable. No fracture or destructive lesion OTHER FINDINGS: Unremarkable. IMPRESSION: No CT evidence of pulmonary embolus. Solitary nodule 5.5 mm left lower lobe for which follow-up chest CT is advised in 6-12 months (depending on patient's risk fracture for developing lung cancer). No infiltrate, pleural or pericardial effusion, pulmonary vascular congestion or significant lymphadenopathy. Normal cardiac size.
[2018-10-29 14:44] VITALS: BP 110/53; PULSE 54; O2SAT 99
== END 2018-10-29 14:43 | disposition home or self-care (01) ==
LOC: H.ER 08:25
DX: M54.9 Dorsalgia, unspecified (principal); R07.89 Other chest pain; R91.1 Solitary pulmonary nodule; M79.7 Fibromyalgia; F41.9 Anxiety disorder, unspecified; Z87.891 Personal history of nicotine dependence; Z88.0 Allergy status to penicillin
CPT/HCPCS: 71046; 71275; 80053; 81025; 83690; 84484; 85025; 85378; 85651; 93005; 96374; 96375; 99284; J1885; J2405; Q9967

== ENCOUNTER 2018-12-01 15:17 | Emergency (ER) | payer OTHER ==
[2018-12-01 15:54] VITALS: BP 123/82; PULSE 75; RESP 16; TEMP 98; O2SAT 98
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
== END 2018-12-01 17:39 | disposition home or self-care (01) ==
LOC: H.ER 15:17
DX: M54.5 Low back pain (principal); M25.511 Pain in right shoulder; V43.62XA Car passenger injured in collision with other type car in traffic accident, initial encounter; Y92.410 Unspecified street and highway as the place of occurrence of the external cause
CPT/HCPCS: 96372; 99282; J1885

== ENCOUNTER 2019-01-12 15:22 | Emergency (ER) | payer OTHER ==
[2019-01-12 15:53] VITALS: RESP 16; O2SAT 98
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
[2019-01-12 19:37] VITALS: BP 118/62; PULSE 71; TEMP 98
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
== END 2019-01-12 19:36 | disposition home or self-care (01) ==
LOC: H.ER 15:22
DX: S09.90XA Unspecified injury of head, initial encounter (principal); S00.12XA Contusion of left eyelid and periocular area, initial encounter; Y04.2XXA Assault by strike against or bumped into by another person, initial encounter; Z88.0 Allergy status to penicillin; M79.7 Fibromyalgia